=== PATIENT | male | born 1945 | race Caucasian/White ===

== ENCOUNTER 2023-09-15 12:47 | Outpatient (AMB) | payer MEDICARE, SELFPAY ==
--- NOTE | 2023-09-15 12:50 | MHC.OFFWIV ---
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 Patient states he was scheduled for a hearing aid fitting; however, he was told that his ears were blocked with ear wax and needed to have the ear wax removed prior to the fitting. Patient is otherwise feeling well. PFSH Social History Patient Tobacco Use Status: Never used Tobacco Review of Systems Const All systems reviewed & are unremarkable except as noted in HPI and below Reports no additional complaints Eyes Reports no additional complaints ENT Reports no additional complaints Card Reports no additional complaints Resp Reports no additional complaints GI Reports no additional complaints Reports no additional complaints Musc Reports no additional complaints Skin/Breast Reports system reviewed and no additional complaints, except as documented Neuro Reports no additional complaints Psych Reports no additional complaints Endo Reports no additional complaints [place]/Lymph Reports no additional complaints Aller/Immun Reports no additional complaints Physical Exam Vital Signs: BMI result Body Mass Index 29.5 Const Other: Vital signs reviewed. Constitutional: Non-toxic appearing. No acute distress. Well-developed and well-nourished. HEENT: Cerumen impaction bilaterally, left greater than right. Skin: Warm and dry. No rashes or lesions noted. Neck: Full and painless range of motion. No cervical lymphadenopathy. Cardio: Regular rate. Pulmonary: No respiratory distress. No accessory muscle usage. Neuro: Alert and oriented x4. Cranial nerves 2-12 grossly intact. Psych: Normal mood and affect. Office Procedures Cerumen Removal From which ear canal was the cerumen removed: bilateral Removal: irrigation Notes: patient tolerated procedure well [id number] Irrigation/Lavage Assessment & Plan Assessment & Plan (1) Impacted cerumen of both ears: Code(s): H61.23 - Impacted cerumen, bilateral Plan: This is a 77-year-old male who presented to the walk-in clinic requesting cerumen removal. On physical examination, he has cerumen impaction bilaterally, left greater than right. A cerumen removal was attempted via irrigation/lavage. On repeat physical examination, there is no longer any cerumen impaction. Patient advised to follow-up here for recurrent symptoms. Coding Level of Care Code New Pt Level 3 (06213) Diagnoses Impacted cerumen of both ears H61.23 CPT Codes Office Procedure - CPT: 05182-Azw Irrigation/Lavage ([id number])
[2023-09-15 12:51] VITALS: BP 110/70; PULSE 57; TEMP 36.6; O2SAT 95; BMI 29.5
== END 2023-09-15 16:14 | disposition home or self-care (01) ==
PROVIDERS: Visit Provider Physician Assistant Medical
DX: H61.23 Impacted cerumen, bilateral (principal)
CPT/HCPCS: 69209; 99203